=== PATIENT | female | born 1950 | race Caucasian/White ===

== ENCOUNTER 2019-04-26 14:06 | Emergency (ER) | payer MEDICARE, OTHER ==
[2019-04-26 14:16] VITALS: BP 158/68; PULSE 95
[2019-04-26] MEDS ORDERED: Sodium Chloride 0.9% 10 ML Syringe FLUSH PRN (14:38)
--- NOTE | 2019-04-26 14:52 | EDM.PDOC ---
ED HPI GENERAL MEDICAL PROBLEM - General Chief Complaint: Abdominal Pain Stated Complaint: BACK AND STOMACH PAIN, FEVER Time Seen by Provider: 04/26/19 14:45 Source of Information: Reports: Patient History Limitations: Reports: No Limitations - History of Present Illness INITIAL COMMENTS - FREE TEXT/NARRATIVE: patient comes emergency department today with complaints of lower abdominal pain and back pain. She reports since Monday that she has had bilateral lower back pain and lower abdominal pain. She complains of nausea but no vomiting. She has had normal bowel movements the past few days no diarrhea. No bloating or distention. She has had fever and chills at home. No chest pain or shortness of breath difficulty breathing or cough. No hematuria dysuria or urinary frequency. She actually feels that she has been paying less frequently. No vaginal discharge or pain. No body aches. No recent falls or trauma. She has had her appendix removed in the past. Bilateral Lower Back Pain Score (Numeric/FACES): 1 - Related Data Allergies Allergy/AdvReac Type Severity Reaction Status Date / Time cinnamon [Cinnamon] Allergy Hives Verified 04/26/19 14:16 clindamycin Allergy Cannot Verified 04/26/19 14:16 Remember corn [[place]] Allergy Hives Verified 04/26/19 14:16 Dairy Products Allergy Hives Verified 04/26/19 14:16 erythromycin base Allergy Other Verified 04/26/19 14:16 [Erythromycin Base] levofloxacin [From Levaquin] Allergy Cannot Verified 04/26/19 14:16 Remember lincomycin Allergy Cannot Verified 04/26/19 14:16 Remember Penicillins Allergy Cannot Verified 04/26/19 14:16 Remember wheat Allergy Hives Verified 04/26/19 14:16 Apples Allergy Hives Uncoded 04/26/19 14:16 Sugar Allergy Hives Uncoded 04/20/17 10:27 Home Meds: Home Meds Alendronate [Fosamax] 70 mg PO .Q7DAYS 09/19/13 [History] Aspirin [Monse Chewable] 81 mg PO DAILY 09/19/13 [History] Azelastine HCl [Astepro] 1 inhalation [place] ASDIRECTED PRN 09/19/13 [History] Calcium Citrate/Vitamin D2 [Calcium Citrate with Vit D] 1 tab PO DAILY 09/19/13 [History] Cholecalciferol (Vitamin D3) [Vitamin D3] 1 tab PO DAILY 09/19/13 [History] Escitalopram [Lexapro] 5 mg PO DAILY 09/19/13 [History] Fish Oil/Amite-3 Fatty Acids [Fish Oil] 1 gm PO DAILY 09/19/13 [History] Flaxseed Oil [Flaxseed] 1,000 mg PO DAILY 09/19/13 [History] Multivitamin with Minerals [Multiple Vitamin] 1 tab PO DAILY 09/19/13 [History] Simvastatin [Zocor] 40 mg PO DAILY 09/19/13 [History] Vitamin E Mixed [Vitamin E] 400 unit PO DAILY 09/19/13 [History] guaiFENesin [Mucinex] 1,200 mg PO ASDIRECTED PRN 09/19/13 [History] Lisinopril [Prinivil] 10 mg PO DAILY 11/18/15 [History] Insulin Aspart [NovoLOG] 16 units SQ TID 04/18/17 [History] Insulin Detemir [Levemir Flextouch] 40 units SQ BEDTIME 04/18/17 [History] Past Medical History HEENT History: Reports: Cataract, Sinusitis Cardiovascular History: Reports: High Cholesterol, Hypertension Respiratory History: Reports: None, Other (See Below) Other Respiratory History: sees polmonologist Gastrointestinal History: Reports: GERD Genitourinary History: Reports: None CAR DUMPER History: Reports: None Musculoskeletal History: Reports: None Neurological History: Reports: None Psychiatric History: Reports: None Endocrine/Metabolic History: Reports: Diabetes, Type II Hematologic History: Reports: None Immunologic History: Reports: None Oncologic (Cancer) History: Reports: None Dermatologic History: Reports: None - Infectious Disease History Infectious Disease History: Reports: Chicken Pox, Measles, Rubella, Shingles - Past Surgical History Head Surgeries/Procedures: Reports: None HEENT Surgical History: Reports: Cataract Surgery, Naso-Sinus Surgery GI Surgical History: Reports: Appendectomy, Colonoscopy, Polypectomy Social & Family History - Family History Family Medical History: Unobtainable - Tobacco Use Smoking Status *Q: Never Smoker Second Hand Smoke Exposure: No - Recreational Drug Use Recreational Drug Use: No ED ROS GENERAL - Review of Systems Review Of Systems: ROS reveals no pertinent complaints other than HPI. ED EXAM, GI/ABD - Physical Exam Exam: See Below Exam Limited By: No Limitations General Appearance: Alert Eyes: Bilateral: Normal Appearance, EOMI Ears: Normal External Exam Nose: Normal Inspection Throat/Mouth: Normal Inspection, Normal Lips, Normal Oropharynx Head: Atraumatic, Normocephalic Neck: Normal Inspection, Supple Respiratory/Chest: No Respiratory Distress, Lungs Clear, No Accessory Muscle Use Cardiovascular: Normal Peripheral Pulses, Regular Rate, Rhythm, No Murmur GI/Abdominal Exam: Normal Bowel Sounds, Soft, Tender (tenderness in the very low bilateral aspects of the abdomen without rebound or guarding. Really in the crease under the pannus at the hips suprapubic pressure as well.). No: Distended, Guarding, Rigid, Rebound (Female) Exam: Deferred Rectal (Female) Exam: Deferred Back Exam: Normal Inspection Extremities: Normal Inspection, Normal Range of Motion, Normal Capillary Refill Neurological: Alert, Oriented, Normal Cognition, No Motor/Sensory Deficits Psychiatric: Normal Affect, Normal Mood Skin Exam: Intact, Increased Warmth, Other (flushed) Course - Vital Signs Last Recorded V/S: Last Vital Signs Temp 36.2 C 04/26/19 14:09 Pulse 95 04/26/19 14:09 Resp 18 04/26/19 14:09 BP 158/68 H 04/26/19 14:09 Pulse Ox 97 04/26/19 14:09 - Orders/Labs/Meds Orders: Active Orders 24 hr Category Date Time Status Peripheral IV Care [RC] . DIRECTED Care 04/26/19 14:38 Inactive Abdomen Pelvis w Cont [CT] Stat Exams 04/26/19 16:36 Stop Req CULTURE BLOOD [BC] Stat Lab 04/26/19 14:58 Received CULTURE URINE [RM] Stat Lab 04/26/19 15:50 Received Labs: Laboratory Tests 04/26/19 04/26/19 04/26/19 Range/Units 14:58 14:58 14:58 WBC 12.6 H (5.0-10.0) 10^3/uL RBC 4.91 (4.2-5.4) 10^6/uL Hgb 14.3 (12.0-16.0) g/dL Hct 43.7 (37.0-47.0) % MCV 89.0 (80-100) fL MCH 29.1 (27.0-34.0) pg MCHC 32.7 L (33.0-35.0) g/dL Plt Count 237 (150-450) 10^3/uL Neut % (Auto) 70.9 (42.2-75.2) % Lymph % (Auto) 18.8 L (20.5-50.1) % Green % (Auto) 9.1 H (2-8) % Eos % (Auto) 0.8 L (1.0-3.0) % Baso % (Auto) 0.4 (0.0-1.0) % Sodium 138 (135-145) mmol/L Potassium 3.7 (3.6-5.0) mmol/L Chloride 107 (101-111) mmol/L Carbon Dioxide 22.0 (21.0-31.0) mmol/L Anion Gap 12.7 BUN 18 (7-18) mg/dL Creatinine 1.0 (0.6-1.3) mg/dL Est Cr Clr Drug Dosing 38.94 mL/min Estimated GFR (MDRD) 55 BUN/Creatinine Ratio 18.00 Glucose 86 (74-105) mg/dL Lactic Acid 1.0 (0.5-2.2) mmol/L Calcium 9.2 (8.4-10.2) mg/dl Total Bilirubin 0.8 (0.2-1.0) mg/dL AST 17 (10-42) IU/L ALT 18 (10-60) IU/L Alkaline Phosphatase 47 (42-121) IU/L C-Reactive Protein (0.0-1.3) mg/dL Total Protein 7.8 (6.7-8.2) g/dl Albumin 3.9 (3.2-5.5) g/dl Globulin 3.9 Albumin/Globulin Ratio 1.00 Urine Color (YELLOW) Urine Appearance (CLEAR) Urine pH (5.0-9.0) Ur Specific [place] (1.005-1.030) Urine Protein (NEGATIVE) Urine Glucose (UA) (NEGATIVE) Urine Ketones (NEGATIVE) Urine Occult Blood (NEGATIVE) Urine Nitrite (NEGATIVE) Urine Bilirubin (NEGATIVE) Urine Urobilinogen (0.2-1.0) mg/dL Ur Leukocyte Esterase (NEGATIVE) Urine RBC /HPF Urine WBC (0-5/HPF) /HPF Ur Epithelial Cells (NOT SEEN) /HPF Urine Bacteria (0-FEW/HPF) /HPF 04/26/19 04/26/19 Range/Units 14:58 15:50 WBC (5.0-10.0) 10^3/uL RBC (4.2-5.4) 10^6/uL Hgb (12.0-16.0) g/dL Hct (37.0-47.0) % MCV (80-100) fL MCH (27.0-34.0) pg MCHC (33.0-35.0) g/dL Plt Count (150-450) 10^3/uL Neut % (Auto) (42.2-75.2) % Lymph % (Auto) (20.5-50.1) % Green % (Auto) (2-8) % Eos % (Auto) (1.0-3.0) % Baso % (Auto) (0.0-1.0) % Sodium (135-145) mmol/L Potassium (3.6-5.0) mmol/L Chloride (101-111) mmol/L Carbon Dioxide (21.0-31.0) mmol/L Anion Gap BUN (7-18) mg/dL Creatinine (0.6-1.3) mg/dL Est Cr Clr Drug Dosing mL/min Estimated GFR (MDRD) BUN/Creatinine Ratio Glucose (74-105) mg/dL Lactic Acid (0.5-2.2) mmol/L Calcium (8.4-10.2) mg/dl Total Bilirubin (0.2-1.0) mg/dL AST (10-42) IU/L ALT (10-60) IU/L Alkaline Phosphatase (42-121) IU/L C-Reactive Protein 10.5 H (0.0-1.3) mg/dL Total Protein (6.7-8.2) g/dl Albumin (3.2-5.5) g/dl Globulin Albumin/Globulin Ratio Urine Color Yellow (YELLOW) Urine Appearance Slightly cloudy (CLEAR) Urine pH 5.5 (5.0-9.0) Ur Specific [place] 1.025 (1.005-1.030) Urine Protein Negative (NEGATIVE) Urine Glucose (UA) Negative (NEGATIVE) Urine Ketones Negative (NEGATIVE) Urine Occult Blood Negative (NEGATIVE) Urine Nitrite Negative (NEGATIVE) Urine Bilirubin Negative (NEGATIVE) Urine Urobilinogen 0.2 (0.2-1.0) mg/dL Ur Leukocyte Esterase Small H (NEGATIVE) Urine RBC 0-5 /HPF Urine WBC >100 H (0-5/HPF) /HPF Ur Epithelial Cells Few (NOT SEEN) /HPF Urine Bacteria Few (0-FEW/HPF) /HPF Meds: Medications Discontinued Medications Generic Name Dose Route Start Last Admin Trade Name Freq PRN Reason Stop Dose Admin Sodium Chloride 1,000 mls @ 300 mls/hr 04/26/19 16:45 Normal Saline IV ASDIRECTED K[place]ALL Phenazopyridine HCl 95 mg 04/26/19 16:43 04/26/19 16:52 Urinary Pain Relief PO 04/26/19 16:44 95 mg ONETIME ONE Administration Sodium Chloride 10 ml 04/26/19 14:38 Saline Flush FLUSH ASDIRECTED PRN Keep Vein Open - Re-Assessments/Exams Free Text/Narrative Re-Assessment/Exam: 04/26/19 19:26 findings Zofran her nausea has improved. She was able to drink fluids. Her urine although has a small amount of leukocyte esterase has greater than 100 uwbc's. she has not been vomiting. I will start her on some Pyridium cefdinir and Zofran. For her pyelonephritis. I did offer hospitalization for which she refused. Which I think is okay as she is will to eat and drink but if at anytime she is unable to keep her medications down she is to return as she will most likely become sicker. She is comfortable with this plan and her questions are answered. Departure - Departure Time of Disposition: 16:43 Disposition: Home, Self-Care 01 Clinical Impression: Pyelonephritis - Discharge Information Instructions: Pyelonephritis, Adult, [id number] Referrals: Cynthia Myrick MD [Primary Care Provider] - Forms: ED Department Discharge Additional Instructions: Tylenol and or Ibuprofen for pain. Increase fluids over the next few days. Cefdinir, 1 tablet twice daily for the next 10 days. RX given to the patient. Urine Culture pending. Zofran, 1 tablet every 6 hrs as needed for nausea. #12. Pyridium, 1 tablet three times a day for the next 3 days. If you are worsening and unable to keep your meds down, fever out of control nausea vomiting you need to recheck in the ED or clinic. Return to the ED if new or worsening symptoms. Follow up with PCP in 1 week if not improving sooner if worse. - My Orders Last 24 Hours: My Active Orders 04/26/19 14:38 Peripheral IV Care [RC] . DIRECTED 04/26/19 14:58 CULTURE BLOOD [BC] Stat 04/26/19 15:50 CULTURE URINE [RM] Stat 04/26/19 16:36 Abdomen Pelvis w Cont [CT] Stat - Assessment/Plan Last 24 Hours: My Active Orders 04/26/19 14:38 Peripheral IV Care [RC] . DIRECTED 04/26/19 14:58 CULTURE BLOOD [BC] Stat 04/26/19 15:50 CULTURE URINE [RM] Stat 04/26/19 16:36 Abdomen Pelvis w Cont [CT] Stat Assessment:: pyelonephritis Plan: Tylenol and or Ibuprofen for pain. Increase fluids over the next few days. Cefdinir, 1 tablet twice daily for the next 10 days. RX given to the patient. Urine Culture pending. Zofran, 1 tablet every 6 hrs as needed for nausea. #12. Pyridium, 1 tablet three times a day for the next 3 days. If you are worsening and unable to keep your meds down, fever out of control nausea vomiting you need to recheck in the ED or clinic. Return to the ED if new or worsening symptoms. Follow up with PCP in 1 week if not improving sooner if worse.
[2019-04-26 15:27] LABS: ANION GAP 12.7
[2019-04-26] MEDS ORDERED: Phenazopyridine 95 MG Tab PO ONE (16:43)
[2019-04-26] MEDS ORDERED: Sodium Chloride 0.9% 1,000 ML IV SCH (16:45)
== END 2019-04-26 16:56 | disposition home or self-care (01) ==
LOC: DL.ED 14:06
DX: N12 Tubulo-interstitial nephritis, not specified as acute or chronic (principal); I10 Essential (primary) hypertension; E78.00 Pure hypercholesterolemia, unspecified; E11.9 Type 2 diabetes mellitus without complications; Z79.4 Long term (current) use of insulin; Z91.018 Allergy to other foods; Z91.011 Allergy to milk products; Z88.1 Allergy status to other antibiotic agents; Z88.0 Allergy status to penicillin; Z79.899 Other long term (current) drug therapy; Z79.82 Long term (current) use of aspirin
CPT/HCPCS: 36415; 80053; 81001; 83605; 85025; 86140; 87040; 87086; 99284; A9270

== ENCOUNTER 2022-12-12 12:12 | Emergency (ER) | payer MEDICARE, OTHER ==
[2022-12-12] MEDS ORDERED: Sodium Chloride 0.9% 10 ML Syringe FLUSH PRN (12:16)
[2022-12-12 12:26] LABS: BASOPHILS PERCENT AUTO 0.7 % (0.0-1.0); EOSINOPHILS PERCENT AUTO 2.3 % (1.0-3.0); HEMATOCRIT 40.4 % (37.0-47.0); HEMOGLOBIN 13.4 g/dL (12.0-16.0); LYMPHOCYTES PERCENT AUTO 28.4 % (20.5-50.1); MEAN CORPUSCULAR HEMOGLOBIN 29.8 pg (27.0-34.0); MEAN CORPUSCULAR HGB CONC 33.2 g/dL (33.0-35.0); MEAN CORPUSCULAR VOLUME 89.8 fL (80-100); MONOCYTES PERCENT AUTO 8.1 % (2-8); NEUTROPHILS PERCENT AUTO 60.5 % (42.2-75.2); PLATELET COUNT,PLT 242 10^3/uL (150-450); WHITE BLOOD CELL COUNT,WBC 8.9 10^3/uL (5.0-10.0)
[2022-12-12 12:57] LABS: ALBUMIN 3.6 g/dL (3.4-5.0); ANION GAP 12.5 mEq/L (7-13); BILIRUBIN TOTAL 0.4 mg/dL (0.2-1.0); BUN/CREATININE RATIO 12.4 (No establ ref range); CALCIUM 9.1 mg/dL (8.5-10.1); CREATININE 1.21 mg/dL (0.55-1.02); EST CRCL DRUG DOSING (CG) 29.3 mL/min; POTASSIUM,K 4.5 mmol/L (3.5-5.1); PROTEIN TOTAL,TP 7.3 g/dL (6.4-8.2)
[2022-12-12] MEDS ORDERED: Iopamidol 612 MG/ML 100 ML Bottle IVPUSH ONE (13:12)
[2022-12-12] MEDS ORDERED: Sodium Chloride 0.9% 1,000 ML IV ONE (13:12)
[2022-12-12] MEDS ORDERED: Lidocaine 5% Oint 35.44 GM Tube TOP ONE (14:28)
[2022-12-12] MEDS ORDERED: valACYclovir 1,000 MG Tab PO ONE (14:28)
[2022-12-12 14:49] VITALS: BP 113/99; PULSE 64
== END 2022-12-12 14:57 | disposition home or self-care (01) ==
LOC: DL.ED 12:12
DX: K29.00 Acute gastritis without bleeding (principal); I25.10 Atherosclerotic heart disease of native coronary artery without angina pectoris; B02.9 Zoster without complications; E78.00 Pure hypercholesterolemia, unspecified; I10 Essential (primary) hypertension; E11.9 Type 2 diabetes mellitus without complications; Z88.1 Allergy status to other antibiotic agents; Z91.018 Allergy to other foods; Z91.011 Allergy to milk products; Z88.0 Allergy status to penicillin
CPT/HCPCS: 36415; 71045; 71260; 74177; 80053; 82150; 83880; 84484; 85025; 93005; 93010; 96360; 99284; 99285-25; A9270-GY; J7030; Q9967

== ENCOUNTER 2025-01-16 15:10 | Emergency (ER) | payer MEDICARE, OTHER ==
[2025-01-16] MEDS ORDERED: Sodium Chloride 0.9% 10 ML Syringe FLUSH PRN (15:27)
[2025-01-16 15:40] LABS: BASOPHILS PERCENT AUTO 0.8 % (0.0-1.0); EOSINOPHILS PERCENT AUTO 4.4 % (1.0-3.0); LYMPHOCYTES PERCENT AUTO 15.7 % (20.5-50.1); MONOCYTES PERCENT AUTO 7.2 % (2-8); NEUTROPHILS PERCENT AUTO 71.9 % (42.2-75.2); PLATELET COUNT,PLT 280 10^3/uL (150-450); RED BLOOD CELL COUNT 3.24 10^6/uL (4.2-5.4); WHITE BLOOD CELL COUNT,WBC 11.9 10^3/uL (5.0-10.0)
[2025-01-16 15:48] LABS: BLOOD UREA NITROGEN,BUN 12.0 mg/dL (8-26); CARBON DIOXIDE,CO2 24.0 mmol/L (24-29); CHLORIDE,CL 106.0 mmol/L (98-109); CREATININE 0.8 mg/dL (0.6-1.3); EST CRCL DRUG DOSING (CG) 45.14 mL/min; ESTIMATED GFR 76.0 mL/min (>=60); GLUCOSE RANDOM 87.0 mg/dL (70-105); POTASSIUM,K 3.2 mmol/L (3.5-4.9); SODIUM,NA 144.0 mmol/L (138-146)
[2025-01-16] MEDS: Iopamidol 755 Mg/ML 100 ML Bottle IVPUSH ONE (15:49)
[2025-01-16 16:02] LABS: INR 1.0 (0.9-1.2)
[2025-01-16] MEDS: Potassium Chloride 10 MEQ Tab.ER PO ONE (16:38)
[2025-01-16 18:02] VITALS: BP 178/71
[2025-01-16 18:20] VITALS: PULSE 71
== END 2025-01-16 19:00 | disposition home or self-care (01) ==
LOC: DL.ED 15:10 → EEVIPCON 15:10 → DL.ED 19:00
DX: J40 Bronchitis, not specified as acute or chronic (principal); J06.9 Acute upper respiratory infection, unspecified; E78.00 Pure hypercholesterolemia, unspecified; I10 Essential (primary) hypertension; K21.9 Gastro-esophageal reflux disease without esophagitis; E11.9 Type 2 diabetes mellitus without complications; Z88.8 Allergy status to other drugs, medicaments and biological substances; Z88.1 Allergy status to other antibiotic agents; Z91.018 Allergy to other foods; Z91.011 Allergy to milk products; Z88.0 Allergy status to penicillin; Z79.899 Other long term (current) drug therapy; Z79.82 Long term (current) use of aspirin; Z79.4 Long term (current) use of insulin
CPT/HCPCS: 36415; 71275; 80048; 84484; 85025; 85610; 86140; 93005; 93010; 93971; 99284; 99285; A9270; Q9967